=== PATIENT | male | born 1970 | race Caucasian/White ===

== ENCOUNTER 2019-06-27 11:02 | Emergency (ER) | payer OTHER ==
[~2019-06-27] VITALS: Ht 185.4 cm; Wt 147.4 kg
[~2019-06-27 11:02] MED LIST: INDOMETHACIN75 MG PO; NORFLEX100 MG PO; TORADOL10 MG PO
[2019-06-27] MEDS ORDERED: NAPROXEN500 MG PO (12:48)
[2019-06-27] MEDS ORDERED: valium PO (12:48)
== END 2019-06-27 12:56 | disposition home or self-care (01) ==
LOC: ER 11:02
DX: M53.3 Sacrococcygeal disorders, not elsewhere classified (principal)